=== PATIENT | male | born 1965 | race Caucasian/White ===

== ENCOUNTER → 2025-01-08 15:29 | Outpatient (REF) | payer BC, SELFPAY | LOC: RCS 15:29 | PROVIDERS: ATTENDING PHYSICIAN Orthopaedic Surgery; FAMILY PHYSICIAN Internal Medicine Geriatric Medicine | DX: Z01.818 Encounter for other preprocedural examination (principal) | CPT/HCPCS: 93005 ==

== ENCOUNTER → 2025-01-09 18:41 | Outpatient (REF) | payer BC, SELFPAY | LOC: CLAB 18:41 | PROVIDERS: ATTENDING PHYSICIAN Orthopaedic Surgery | DX: S50.851A Superficial foreign body of right forearm, initial encounter (principal); S50.852A Superficial foreign body of left forearm, initial encounter | CPT/HCPCS: 87070; 87075; 87077; 87205 ==